=== PATIENT | female | born 1990 | race Caucasian/White ===

== ENCOUNTER 2020-06-30 12:33 | Emergency (ER) | payer OTHER ==
[~2020-06-30] VITALS: Ht 160 cm; Wt 97.5 kg
[2020-06-30] MEDS ORDERED: PENICILLIN V P500 MG PO (14:05)
[2020-06-30] MEDS ORDERED: IBUPROFEN 800800 M1 PO (14:05)
[2020-06-30 14:18] VITALS: BP 145/78
== END 2020-06-30 14:19 | disposition home or self-care (01) ==
LOC: M.ERS 12:33
DX: S00.83XA Contusion of other part of head, initial encounter (principal); K04.7 Periapical abscess without sinus; I10 Essential (primary) hypertension; F17.210 Nicotine dependence, cigarettes, uncomplicated; Z90.89 Acquired absence of other organs; Z98.890 Other specified postprocedural states; Z88.6 Allergy status to analgesic agent; Y08.89XA Assault by other specified means, initial encounter; Y93.9 Activity, unspecified; Y92.89 Other specified places as the place of occurrence of the external cause; Y99.8 Other external cause status